=== PATIENT | female | born 1945 | race Caucasian/White ===

== ENCOUNTER 2017-06-26 15:34 | Emergency (ER) | payer MEDICARE ==
[~2017-06-26] VITALS: Ht 188 cm; Wt 103.0 kg
[~2017-06-26 15:34] MED LIST: ALBU8I INH; FENO1TAB76 PO; PHEN1CAP PO; PRED50TA PO; PROT40TA PO
[2017-06-26 15:40] VITALS: BP 156/70; PULSE 93; RESP 18; TEMP 97.9; O2SAT 97
[2017-06-26] MEDS ORDERED: PANT40TA3 PO (15:56)
[2017-06-26] MEDS ORDERED: FISHCAP4 PO (15:56)
[2017-06-26] MEDS ORDERED: MAGN400T14 PO (15:56)
--- NOTE | 2017-06-26 16:11 | PD ---
HPI Chief Complaint: Respiratory Symptoms Time Seen by Provider: 15:56 Travel History International Travel<30 days: No Contact w/Intl Traveler<30days: No Traveled to known affect area: No History of Present Illness HPI Patient presents with complaints of a cough for 6 weeks. Nonproductive. Denies nausea vomiting diarrhea or fever. No new rashes. She does have a history of asthma. Compliant with her MDI. Reports evaluation approximately 3 weeks ago with completion of amoxicillin. PFSH Past Medical History Arthritis: Yes (OSTEOARTHRITIS) Asthma: Yes High Cholesterol: Yes GERD: Yes Respiratory: Yes Pneumonia: Yes Ulcer: Yes (BLEEDING ULCER SMALL INTESTINE: 2012) Tetanus Vaccination: > 5 Years Influenza Vaccination: No ?: Not Menopausal: Yes : 5 Para: 5 Past Surgical History Joint Replacement: Yes (LEFT KNEE) Neurologic Surgery: Yes (L4-L5 FUSION: 2000) Other Surgery: Yes (LEFT FOOT) Social History Alcohol Use: Yes (VERY RARELY) Tobacco Use: No (QUIT 2011) Substance Use: No Allergies-Medications (Allergen,Severity, Reaction): Coded Allergies: diatrizoate meglumine (Unverified Allergy, Severe, Swelling, 06/26/17) THROAT SWELLING/TIGHTNESS, AND ITCHING gadobenic acid (Unverified Allergy, Severe, Swelling, 06/26/17) THROAT SWELLING/TIGHTNESS, AND ITCHING gadodiamide (Unverified Allergy, Severe, Swelling, 06/26/17) THROAT SWELLING/TIGHTNESS, AND ITCHING gadoteridol (Unverified Allergy, Severe, Swelling, 06/26/17) THROAT SWELLING/TIGHTNESS, AND ITCHING iodixanol (Unverified Allergy, Severe, Swelling, 06/26/17) THROAT SWELLING/TIGHTNESS, AND ITCHING iohexol (Unverified Allergy, Severe, Swelling, 06/26/17) THROAT SWELLING/TIGHTNESS, AND ITCHING Reported Meds & Prescriptions Reported Meds & Active Scripts Active Reported Fish Oil + D3 (Fish Oil-Cholecalciferol) 1,200-1,000 Mg-Unit Cap 1 Cap PO DAILY Magnebind-400 Rx (Magnesium-Calcium Carbonates-Folic Acid) 400-200-1 Mg Tab 1 Tab PO DIRECTED Pantoprazole (Pantoprazole Sodium) 40 Mg Tab 40 Mg PO DAILY Review of Systems General / Constitutional: No: Fever Eyes: No: Visual changes HENT: No: Headaches Cardiovascular: No: Chest Pain or Discomfort Respiratory: Positive: Cough, No: Shortness of Breath Gastrointestinal: No: Abdominal Pain Genitourinary: No: Dysuria Musculoskeletal: No: Pain Skin: No Rash Neurologic: No: Weakness Psychiatric: No: Depression Endocrine: No: Polydipsia Hematologic/Lymphatic: No: Easy Bruising Physical Exam Narrative GENERAL: Well-nourished, well-developed patient. SKIN: Focused skin assessment warm/dry. HEAD: Normocephalic. EYES: No scleral icterus. No injection or drainage. NECK: Supple, trachea midline. No JVD or lymphadenopathy. CARDIOVASCULAR: Regular rate and rhythm without murmurs, gallops, or rubs. RESPIRATORY: Coarse left lower lobe with minimal end expiratory wheeze. No accessory muscle use. GASTROINTESTINAL: Abdomen soft, non-tender, nondistended. MUSCULOSKELETAL: No cyanosis, or edema. BACK: Nontender without obvious deformity. No CVA tenderness. Data Data Last Documented VS Vital Signs Date Time Temp Pulse Resp B/P (MAP) Pulse Ox O2 Delivery O2 Flow Rate FiO2 06/26/17 15:54 Room Air 06/26/17 15:40 97.9 93 18 156/70 (98) 97 Orders Orders Chest, Single Ap (06/26/17 ) Complete Blood Count With Diff (06/26/17 15:56) Labs Laboratory Tests Test 06/26/17 16:00 White Blood Count 8.7 TH/MM3 Red Blood Count 4.88 MIL/MM3 Hemoglobin 13.6 GM/DL Hematocrit 40.2 % Mean Corpuscular Volume 82.5 FL Mean Corpuscular Hemoglobin 27.8 PG Mean Corpuscular Hemoglobin Concent 33.7 % Red Cell Distribution Width 12.4 % Platelet Count 229 TH/MM3 Mean Platelet Volume 6.9 FL Neutrophils (%) (Auto) 57.1 % Lymphocytes (%) (Auto) 34.0 % Monocytes (%) (Auto) 6.0 % Eosinophils (%) (Auto) 2.4 % Basophils (%) (Auto) 0.5 % Neutrophils # (Auto) 5.0 TH/MM3 Lymphocytes # (Auto) 3.0 TH/MM3 Monocytes # (Auto) 0.5 TH/MM3 Eosinophils # (Auto) 0.2 TH/MM3 Basophils # (Auto) 0.0 TH/MM3 CBC Comment DIFF FINAL Differential Comment [facility] Medical Decision Making Medical Screen Exam Complete: Yes Emergency Medical Condition: Yes Differential Diagnosis Acute asthma exacerbation, pneumonia, bronchitis, COPD Narrative Course Assessment and plan discussed with patient at bedside. CBC within normal limits Last 72 hours Impressions Chest X-Ray 06/26/17 0000 Signed Impressions: Service Date/Time: Wednesday, June 26, 2017 16:05 - CONCLUSION: Left basilar atelectasis versus linear scarring. Paul Cleveland MD Diagnosis Primary Impression: Cough Patient Instructions: General Instructions Additional Instructions: Course of antibiotics and steroid taper, encouraged to continue asthma medication, encouraged to follow-up with PCP, encouraged to return to emergency room with any onset of new symptoms. Med/Other Pt SpecificInfo: Prescription(s) given Scripts Prednisone (21) 10 mg tab Dose Pack (Prednisone (21) 10 mg tab Dose Pack) 10 Mg Pack 10 MG PO DIRECTED for Inflammation, #1 DSPK 0 Refills Prov: Harinder Aly MD 06/26/17 Azithromycin (Zithromax) 500 Mg Tab 500 MG PO DAILY for Infection for 7 Days, #7 TAB 0 Refills Prov: Harinder Aly MD 06/26/17 Disposition: 01 DISCHARGE HOME Condition: Good Harinder Aly MD Jun 26, 2017 16:11
[2017-06-26 16:14] LABS: BASOPHIL % 0.5 % (0.0-2.0); EOSINOPHIL # 0.2 TH/MM3 (0-0.4); EOSINOPHIL % 2.4 % (0.0-4.0); HEMATOCRIT 40.2 % (35.0-46.0); HEMO FLAGS DIFF FINAL; MEAN CELL VOLUME 82.5 FL (80.0-100.0); MEAN CORPUSCULAR HEMOGLOBIN 27.8 PG (27.0-34.0); MEAN CORPUSCULAR HGB CONC 33.7 % (32.0-36.0); NEUT % 57.1 % (16.0-70.0); PLATELET COUNT 229 TH/MM3 (150-450); RED BLOOD COUNT 4.88 MIL/MM3 (4.00-5.30); RED CELL DISTRIBUTION WIDTH 12.4 % (11.6-17.2); WHITE BLOOD COUNT 8.7 TH/MM3 (4.0-11.0)
--- NOTE | 2017-06-26 16:17 | RADRPT ---
EXAM DATE/TIME: 06/26/2017 16:05 [facility] COMPARISON: CHEST PA & LAT, December 29, 2015, 22:18. INDICATIONS : Cough, short of breath MEDICAL HISTORY : asthma SURGICAL HISTORY : None. ENCOUNTER: Initial ACUITY: 1 month PAIN SCORE: 0/10 LOCATION: Bilateral chest FINDINGS: There is linear atelectasis versus scarring at the left lung base, new from 2016. Cardiomegaly is pre sent. No consolidation or effusion. Osseous structures are intact. CONCLUSION: Left basilar atelectasis versus linear scarring. Paul Cleveland MD on June 26, 2017 at 16:15 Board Certified Radiologist. This report was verified electronically.
[2017-06-26] MEDS ORDERED: PRED10PA PO (16:53)
[2017-06-26] MEDS ORDERED: ZITH500T PO (16:53)
== END 2017-06-26 17:06 | disposition home or self-care (01) ==
LOC: PHED 15:34
DX: R05 Cough (principal); E78.00 Pure hypercholesterolemia, unspecified; M19.90 Unspecified osteoarthritis, unspecified site; J45.909 Unspecified asthma, uncomplicated; Z88.8 Allergy status to other drugs, medicaments and biological substances; Z79.899 Other long term (current) drug therapy
CPT/HCPCS: 71010; 85025; 99284

== ENCOUNTER 2017-12-04 08:07 | Emergency (ER) | payer MEDICARE ==
[~2017-12-04] VITALS: Ht 154.9 cm; Wt 96.0 kg
[~2017-12-04 08:07] MED LIST changes: -ALBU8I INH; -FENO1TAB76 PO; +FISHCAP4 PO; +MAGN400T14 PO; +PANT40TA3 PO; -PHEN1CAP PO; +PRED10PA PO; -PRED50TA PO; -PROT40TA PO; +ZITH500T PO
[2017-12-04 08:16] VITALS: BP 124/62; PULSE 85; RESP 16; TEMP 97.8; O2SAT 99
[2017-12-04] MEDS ORDERED: ONDANSETRON HCL 4 MG/2 ML VIAL IV PUSH ONE (08:45)
[2017-12-04] MEDS ORDERED: MORPHINE SULFATE 2 MG/ML SYRINGE IV PUSH ONE (08:45)
[2017-12-04 09:04] LABS: BILIRUBIN, URINE NEG (NEG); BLOOD, URINE SMALL (NEG); GLUCOSE,URINE NEG (NEG); KETONE, URINE NEG (NEG); NITRITE,URINE NEG (NEG); PH, URINE 5.5 (5.0-8.5); URINE COLOR YELLOW (YELLW/STRAW); URINE LEUKOCYTE ESTERASE NEG (NEG)
[2017-12-04 09:07] LABS: AUTOMATED NEUTROPHIL # 4.2 TH/MM3 (1.8-7.7); BASOPHIL % 0.7 % (0.0-2.0); EOSINOPHIL # 0.2 TH/MM3 (0-0.4); EOSINOPHIL % 3.2 % (0.0-4.0); HEMATOCRIT 42.2 % (35.0-46.0); HEMOGLOBIN 14.4 GM/DL (11.6-15.3); LYMPH % 24.7 % (9.0-44.0); LYMPHOCYTE # 1.6 TH/MM3 (1.0-4.8); MEAN CELL VOLUME 81.1 FL (80.0-100.0); MEAN CORPUSCULAR HEMOGLOBIN 27.6 PG (27.0-34.0); MEAN CORPUSCULAR HGB CONC 34.1 % (32.0-36.0); MEAN PLATELET VOLUME 6.8 FL (7.0-11.0); MONO % 8.1 % (0.0-8.0); MONOCYTE # 0.5 TH/MM3 (0-0.9); NEUT % 63.3 % (16.0-70.0); PLATELET COUNT 228 TH/MM3 (150-450); RED BLOOD COUNT 5.21 MIL/MM3 (4.00-5.30); RED CELL DISTRIBUTION WIDTH 12.7 % (11.6-17.2); WHITE BLOOD COUNT 6.5 TH/MM3 (4.0-11.0)
[2017-12-04 09:10] LABS: SQUAMOUS EPITHELIAL CELL URINE 0-5 /hpf (0-5); WBC, URINE 0-2 /hpf (0-5)
--- NOTE | 2017-12-04 09:12 | PD ---
HPI . Flank pain Chief Complaint: Back/ Neck Pain or Injury Time Seen by Provider: 08:42 Travel History International Travel<30 days: No Contact w/Intl Traveler<30days: No Traveled to known affect area: No History of Present Illness HPI Patient presents with chief complaint of right flank pain. Onset was over a week ago. She states that she saw her primary care provider for the same and that the PCP gave her a prescription for a pain pill but that she has not been taking a pain pill because it makes her too sleepy. The patient denies any associated symptoms. Particularly, no urinary tract symptoms. No symptoms of pneumonia such as cough, fever, difficulty breathing. She describes the pain as sharp and rates it as 10/10. The pain has been intermittent. The patient states that she had a subjective febrile illness approximately 4 days ago but no documented fever. The symptoms have resolved. The patient reports to me that she is concerned that she is doing damage to her kidneys because she has been taking a lot of ibuprofen for knee pain. She reports that she is scheduled for a right total knee replacement in January. PFSH Past Medical History Hx Anticoagulant Therapy: No Arthritis: Yes (OSTEOARTHRITIS) Asthma: Yes Cardiovascular Problems: Yes (CHOL) High Cholesterol: Yes Diabetes: No GERD: Yes Respiratory: Yes Pneumonia: Yes Ulcer: Yes (BLEEDING ULCER SMALL INTESTINE: 2012) Tetanus Vaccination: > 5 Years Influenza Vaccination: No ?: Not Menopausal: Yes : 5 Para: 5 Past Surgical History Joint Replacement: Yes (LEFT KNEE) Neurologic Surgery: Yes (L4-L5 FUSION: 2000) Other Surgery: Yes (LEFT FOOT) Social History Alcohol Use: Yes (VERY RARELY) Tobacco Use: No (QUIT 2011) Substance Use: No Allergies-Medications (Allergen,Severity, Reaction): Coded Allergies: diatrizoate meglumine (Unverified Allergy, Severe, Swelling, 12/04/17) THROAT SWELLING/TIGHTNESS, AND ITCHING gadobenic acid (Unverified Allergy, Severe, Swelling, 12/04/17) THROAT SWELLING/TIGHTNESS, AND ITCHING gadodiamide (Unverified Allergy, Severe, Swelling, 12/04/17) THROAT SWELLING/TIGHTNESS, AND ITCHING gadoteridol (Unverified Allergy, Severe, Swelling, 12/04/17) THROAT SWELLING/TIGHTNESS, AND ITCHING iodixanol (Unverified Allergy, Severe, Swelling, 12/04/17) THROAT SWELLING/TIGHTNESS, AND ITCHING iohexol (Unverified Allergy, Severe, Swelling, 12/04/17) THROAT SWELLING/TIGHTNESS, AND ITCHING Reported Meds & Prescriptions Reported Meds & Active Scripts Active Reported Fish Oil + D3 (Fish Oil-Cholecalciferol) 1,200-1,000 Mg-Unit Cap 2 Cap PO DAILY Magnebind-400 Rx (Magnesium-Calcium Carbonates-Folic Acid) 400-200-1 Mg Tab 1 Tab PO DIRECTED Review of Systems Except as stated in HPI: all other systems reviewed are Neg General / Constitutional: Positive: Fever, Chills (Subjective fevers and chills a few days ago.) Respiratory: No: Cough, Shortness of Breath Gastrointestinal: No: Nausea, Vomiting, Diarrhea, Abdominal Pain Genitourinary: Positive: Flank Pain, No: Urgency, Frequency, Dysuria, Hematuria Musculoskeletal: Positive: Arthralgias Physical Exam Narrative GENERAL: Patient is awake and alert and does not appear to be in acute distress. SKIN: warm/dry. HEAD: Normocephalic. Atraumatic. EYES: Pupils equal and round. No scleral icterus. No injection or drainage. ENT: No nasal bleeding or discharge. Mucous membranes pink and moist. NECK: Trachea midline. Full range of motion without pain.. CARDIOVASCULAR: Regular rate and rhythm. RESPIRATORY: No accessory muscle use. Clear to auscultation. Breath sounds equal bilaterally. GASTROINTESTINAL: Abdomen soft. Nontender. Bowel sounds present. Nondistended. : Positive right flank tenderness. It is not exactly in the CVA area. It is more in the posterior axillary line. MUSCULOSKELETAL: No obvious deformities. NEUROLOGICAL: Awake and alert. No obvious cranial nerve deficits. Motor grossly within normal limits. Normal speech. PSYCHIATRIC: Appropriate mood and affect; insight and judgment normal. Data Data Last Documented VS Vital Signs Date Time Temp Pulse Resp B/P (MAP) Pulse Ox O2 Delivery O2 Flow Rate FiO2 12/04/17 08:16 97.8 85 16 124/62 (82) [address] Abd/Pel W/O Iv Contrast (12/04/17 08:42) Urinalysis - C+S If Indicated (12/04/17 08:42) Basic Metabolic Panel (Bmp) (12/04/17 08:42) Complete Blood Count With Diff (12/04/17 08:42) ^ Saline Lock (12/04/17 08:42) Morphine Inj (Morphine Inj) (12/04/17 08:45) Ondansetron Inj (Zofran Inj) (12/04/17 08:45) Labs Laboratory Tests Test 12/04/17 08:50 White Blood Count 6.5 TH/MM3 Red Blood Count 5.21 MIL/MM3 Hemoglobin 14.4 GM/DL Hematocrit 42.2 % Mean Corpuscular Volume 81.1 FL Mean Corpuscular Hemoglobin 27.6 PG Mean Corpuscular Hemoglobin Concent 34.1 % Red Cell Distribution Width 12.7 % Platelet Count 228 TH/MM3 Mean Platelet Volume 6.8 FL Neutrophils (%) (Auto) 63.3 % Lymphocytes (%) (Auto) 24.7 % Monocytes (%) (Auto) 8.1 % Eosinophils (%) (Auto) 3.2 % Basophils (%) (Auto) 0.7 % Neutrophils # (Auto) 4.2 TH/MM3 Lymphocytes # (Auto) 1.6 TH/MM3 Monocytes # (Auto) 0.5 TH/MM3 Eosinophils # (Auto) 0.2 TH/MM3 Basophils # (Auto) 0.0 TH/MM3 CBC Comment DIFF FINAL Differential Comment Urine Collection Type CLEAN CATCH Urine Color YELLOW Urine Turbidity CLEAR Urine pH 5.5 Urine Specific [place] 1.025 Urine Protein TRACE mg/dL Urine Glucose (UA) NEG mg/dL Urine Ketones NEG mg/dL Urine Occult Blood SMALL Urine Nitrite NEG Urine Bilirubin NEG Urine Urobilinogen 0.2 MG/DL Urine Leukocyte Esterase NEG Urine RBC 10-14 /hpf Urine WBC 0-2 /hpf Urine Squamous Epithelial Cells 0-5 /hpf Microscopic Urinalysis Comment CULT NOT INDICATED Urine Collection Time 08:50 Blood Urea Nitrogen 26 MG/DL Creatinine 0.98 MG/DL Random Glucose 108 MG/DL Calcium Level 9.5 MG/DL Sodium Level 140 MEQ/L Potassium Level 4.7 MEQ/L Chloride Level 108 MEQ/L Carbon Dioxide Level 25.9 MEQ/L Anion Gap 6 MEQ/L Estimat Glomerular Filtration Rate 56 ML/MIN [facility] Medical Decision Making Medical Screen Exam Complete: Yes Emergency Medical Condition: Yes Differential Diagnosis Differential diagnosis of flank pain includes but is not limited to kidney stone , pyelonephritis, musculoskeletal pain, PE Narrative Course This patient presents with right flank pain. I will work her up for a kidney stone. During the workup, she will be treated with IV morphine and Zofran. The patient is concerned that she has done damage to her kidneys by taking ibuprofen. A CBC and BMP are pending. CT: Review of bone windows show degenerative changes of the spine. Visualized lung bases are clear. There is hepatic steatosis identified. There is a solitary calcified gallstone in the dependent portion of the gallbladder measuring 7 mm. There are 3 low-density lesions in the left lobe of the liver measuring up to 2.6 cm characteristic of cysts. Spleen, visualized portions of the pancreas and adrenal glands are normal. There are no renal calculi or hydronephrosis. Diffuse atherosclerotic calcification of the aorta and iliac vessels. Urinary bladder, uterus and adnexa are unremarkable. No evidence of mild obstruction, free fluid or free air. The appendix is normal. The right hemipelvis an ill- defined area of soft tissue density is seen which may be related to tortuous or ectatic internal iliac artery or vein versus adenopathy. On axial image 102 this area of soft tissue density measures 5.6 x 3.7 cm. I will have the patient follow-up with her primary care provider for further evaluation of the abnormality noted on CT. This abnormality does not represent an acute problem. UA: small blood, 10-14 RBCs CBC Diagram 12/04/17 08:50 BMP Diagram 12/04/17 08:50 Calcium Level 9.5 The history, exam, diagnostic testing, and current condition do not suggest any significant pathology to warrant further testing, continued ED treatment, admission, or surgical evaluation at this point. No EMC was found. The patient 's condition is stable and appropriate for discharge. Diagnosis Primary Impression: Right flank pain Patient Instructions: Flank Pain (ED), General Instructions, Narcotic given in the ED Additional Instructions: Follow-up with your primary care provider for further evaluation of an abnormality noted on CAT scan. Disposition: 01 DISCHARGE HOME Condition: Stable Agatha Jacobson MD Dec 04, 2017 09:12
[2017-12-04 09:20] VITALS: BP 115/54; PULSE 80; RESP 18; O2SAT 96
[2017-12-04 09:22] VITALS: RESP 17
--- NOTE | 2017-12-04 09:26 | RADRPT ---
EXAM DATE/TIME: 12/04/2017 09:06 [facility] COMPARISON: No previous studies available for comparison. INDICATIONS : Right sided Back pain. ORAL CONTRAST: No oral contrast ingested. RADIATION DOSE: 18.92 CTDIvol (mGy) MEDICAL HISTORY : Cardiovascular disease. Hypercholesterolemia. Gastroesophageal reflux disease.Asthma SURGICAL HISTORY : Cholecystectomy. Small intestine for ulcer, left knee Lumbar fusion ENCOUNTER: Initial ACUITY: 1 week PAIN SCALE: 10/10 LOCATION: Right lower back TECHNIQUE: Volumetric scanning of the abdomen and pelvis was performed. Using automated exposure control and ad justment of the mA and/or kV according to patient size, radiation dose was kept as low as reasonably achievable to obtain optimal diagnostic quality images. DICOM format image data is available electro nically for review and comparison. FINDINGS: Review of bone windows show degenerative changes of the spine. Visualized lung bases are clear. There is hepatic steatosis identified. There is a solitary calcified gallstone in the dependent portion of the gallbladder measuring 7 mm. There are 3 low-density lesions in the left lobe of the liver measur ing up to 2.6 cm characteristic of cysts. Spleen, visualized portions of the pancreas and adrenal gla nds are normal. There are no renal calculi or hydronephrosis. Diffuse atherosclerotic calcification o f the aorta and iliac vessels. Urinary bladder, uterus and adnexa are unremarkable. No evidence of mi ld obstruction, free fluid or free air. The appendix is normal. The right hemipelvis an ill-defined a roma of soft tissue density is seen which may be related to tortuous or ectatic internal iliac artery or vein versus adenopathy. On axial image 102 this area of soft tissue density measures 5.6 x 3.7 cm. CONCLUSION: 1. There is an ill-defined 5.6 cm area of soft tissue density in the right hemipelvis which may be re lated to prominent vasculature however an underlying mass can have this appearance. A contrast enhanc ed CT through the pelvis would be helpful with IV and oral contrast. 2. Cholelithiasis. 3. Atheroscle rosis. 4. Hepatic steatosis. 5. Hepatic cysts. Paul Cleveland MD on December 04, 2017 at 9:18 Board Certified Radiologist. This report was verified electronically.
[2017-12-04 09:52] LABS: CALCIUM 9.5 MG/DL (8.5-10.1)
[2017-12-04 09:53] LABS: BICARBONATE 25.9 MEQ/L (21.0-32.0)
[2017-12-04 09:57] LABS: CREATININE 0.98 MG/DL (0.50-1.00)
[2017-12-04 10:43] VITALS: BP 117/59
== END 2017-12-04 10:49 | disposition home or self-care (01) ==
LOC: PHED 08:07
DX: R10.9 Unspecified abdominal pain (principal); M19.90 Unspecified osteoarthritis, unspecified site; J45.909 Unspecified asthma, uncomplicated; E78.00 Pure hypercholesterolemia, unspecified; K21.9 Gastro-esophageal reflux disease without esophagitis; Z87.891 Personal history of nicotine dependence
CPT/HCPCS: 74176; 80048; 81001; 85025; 96374; 96375; 99284; J2270; J2405